=== PATIENT | male | born 1980 | race Caucasian/White ===

== ENCOUNTER 2018-06-19 18:15 | Inpatient (IN) | payer MEDICAID, OTHER ==
[2018-06-19 21:36] LABS: ADD MAN DIFF? NO
[2018-06-19] MEDS: ONDANSETRON 4 MG INJ IV (21:37)
[2018-06-19] MEDS: HYDROmorphONE 1 MG/ML SYG IV (21:38)
[2018-06-19] MEDS: SOD CHLORIDE 0.9% 1,000 ML IV (21:38)
[2018-06-19 21:44] LABS: BASOPHILS % 0.4 % (0.0-2.0); EOSINOPHILS # 0.1 10^3/ul (0.0-0.5); EOSINOPHILS % 2.2 % (0.0-7.0); HEMATOCRIT 47.3 % (42.0-52.0); HEMOGLOBIN 16.4 g/dl (14.0-18.0); LYMPHOCYTES # 0.9 10^3/ul (0.8-2.9); LYMPHOCYTES % 16.5 % (15.0-51.0); MEAN CORPUSCULAR HGB CONC 34.7 g/dl (32.0-37.0); MEAN CORPUSCULAR VOLUME 83.7 fl (82.0-101.0); MEAN PLATELET VOLUME 11.7 fl (7.4-10.4); MONOCYTE # 0.5 10^3/ul (0.3-0.9); NEUTROPHILS % 71.5 % (39.0-77.0); PLATELET COUNT 236 10^3/UL (140-415); RED BLOOD COUNT 5.65 10^6/ul (4.70-6.10); RED CELL DISTRIBUTION WIDTH 12.5 % (11.5-14.5)
[2018-06-19 21:44] LABS: WHITE BLOOD COUNT 5.6 10^3/ul (4.8-10.8)
[2018-06-19 22:10] LABS: ALANINE AMINOTRANSFERASE 97 IU/L (13-69); ALBUMIN 5.1 g/dl (3.3-4.9); ALBUMIN/GLOBULIN RATIO 1.27; ALKALINE PHOSPHATASE 127 IU/L (42-121); ANION GAP 16 (5-13); ASPARTATE AMINO TRANSFERASE 127 IU/L (15-46); BILIRUBIN,INDIRECT 0.5 mg/dl (0-1.1); BILIRUBIN,TOTAL 0.5 mg/dl (0.2-1.3); BLOOD UREA NITROGEN 16 mg/dl (7-20); CALCIUM 9.9 mg/dl (8.4-10.2); CARBON DIOXIDE 20 mmol/L (21-31); CHLORIDE 101 mmol/L (97-110); CREATININE 1.09 mg/dl (0.61-1.24); Estimated GFR > 60 mL/min (>60); GLUCOSE 87 mg/dl (70-220); LIPASE 114 U/L (23-300); SODIUM 137 mmol/L (135-144); TOTAL PROTEIN 9.1 g/dl (6.1-8.1)
[2018-06-19 22:15] LABS: POTASSIUM 2.7 mmol/L (3.5-5.1)
[2018-06-19] MEDS: NS + KCL 20 MEQ 1,000 ML IV (22:44)
[2018-06-19] MEDS: SOD CHLORIDE 0.9% 100 ML (22:45)
[2018-06-19] MEDS: IODIXANOL LOCM 100 ML BTL (22:45)
[2018-06-19] MEDS ORDERED: SOD CHLORIDE 0.9% 1,000 ML IV (23:08)
[2018-06-19] MEDS ORDERED: ONDANSETRON 4 MG INJ IV (23:30)
[2018-06-19] MEDS ORDERED: ACETAMINOPHEN 325 MG TAB PO (23:30)
[2018-06-20] MEDS ORDERED: LOPERAMIDE 2 MG CAP PO
[2018-06-20 00:31] LABS: ADD UMIC NO; UR ASCORBIC ACID NEGATIVE (NEGATIVE); UR BILIRUBIN (Dip) NEGATIVE (NEGATIVE); UR BLOOD (Dip) NEGATIVE (NEGATIVE); UR CLARITY CLEAR (CLEAR); UR COLOR YELLOW (YELLOW); UR GLUCOSE (Dip) NEGATIVE (NEGATIVE); UR KETONES (Dip) 1+ mg/dL (NEGATIVE); UR LEUKOCYTE ESTERASE (Dip) NEGATIVE Leu/ul (NEGATIVE); UR NITRITE (Dip) NEGATIVE (NEGATIVE); UR SPECIFIC GRAVITY (Dip) > 1.060 (1.003-1.030); UR TOTAL PROTEIN (Dip) NEGATIVE (NEGATIVE); UR UROBILINOGEN (Dip) NEGATIVE (NEGATIVE)
[2018-06-20 01:03] LABS: HIV 1&2 ANTIBODY REACTIVE (NEGATIVE)
[2018-06-20 01:47] LABS: ALANINE AMINOTRANSFERASE 81 IU/L (13-69); ALBUMIN 4.2 g/dl (3.3-4.9); ALBUMIN/GLOBULIN RATIO 1.55; ALKALINE PHOSPHATASE 94 IU/L (42-121); ANION GAP 15 (5-13); ASPARTATE AMINO TRANSFERASE 105 IU/L (15-46); BILIRUBIN,INDIRECT 0.3 mg/dl (0-1.1); BILIRUBIN,TOTAL 0.3 mg/dl (0.2-1.3); BLOOD UREA NITROGEN 14 mg/dl (7-20); CALCIUM 8.8 mg/dl (8.4-10.2); CARBON DIOXIDE 20 mmol/L (21-31); CHLORIDE 102 mmol/L (97-110); CREATININE 0.86 mg/dl (0.61-1.24); Estimated GFR > 60 mL/min (>60); GLUCOSE 83 mg/dl (70-220); POTASSIUM 3.1 mmol/L (3.5-5.1); SODIUM 137 mmol/L (135-144); TOTAL PROTEIN 6.9 g/dl (6.1-8.1)
[2018-06-20] MEDS ORDERED: morphine 2 MG INJ IV (02:00)
[2018-06-20] MEDS: morphine 2 MG INJ IV ×2 (02:14→19:55)
[2018-06-20] MEDS: POTASSIUM CHLORIDE 30 MEQ in SOD CHLORIDE 0.9% 1,000 ML IV ×3 (02:16→21:08)
[2018-06-20] MEDS ORDERED: NACL 0.9% 3 ML SYG IV (02:30)
[2018-06-20] MEDS ORDERED: ACETAMINOPHEN 325 MG TAB PO (02:30)
[2018-06-20] MEDS: metroNIDAZOLE 500 MG/NS (PMX) 100 ML IVPB ×4 (03:30→20:02)
[2018-06-20 05:26] LABS: ADD MAN DIFF? NO
[2018-06-20 05:28] LABS: WHITE BLOOD COUNT 3.5 10^3/ul (4.8-10.8)
[2018-06-20 05:28] LABS: BASOPHILS % 0.3 % (0.0-2.0); EOSINOPHILS # 0.1 10^3/ul (0.0-0.5); EOSINOPHILS % 3.1 % (0.0-7.0); HEMATOCRIT 39.2 % (42.0-52.0); HEMOGLOBIN 13.3 g/dl (14.0-18.0); LYMPHOCYTES # 0.8 10^3/ul (0.8-2.9); MEAN CORPUSCULAR HEMOGLOBIN 28.8 pg (29.0-33.0); MEAN CORPUSCULAR HGB CONC 33.9 g/dl (32.0-37.0); MEAN CORPUSCULAR VOLUME 84.8 fl (82.0-101.0); MEAN PLATELET VOLUME 12.2 fl (7.4-10.4); MONOCYTE # 0.4 10^3/ul (0.3-0.9); MONOCYTES % 10.6 % (0.0-11.0); NEUTROPHIL # 2.2 10^3/ul (1.6-7.5); NEUTROPHILS % 63.7 % (39.0-77.0); PLATELET COUNT 173 10^3/UL (140-415); RED BLOOD COUNT 4.62 10^6/ul (4.70-6.10); RED CELL DISTRIBUTION WIDTH 12.6 % (11.5-14.5)
[2018-06-20 06:12] LABS: ALANINE AMINOTRANSFERASE 77 IU/L (13-69); ALBUMIN/GLOBULIN RATIO 1.66; ALKALINE PHOSPHATASE 84 IU/L (42-121); ANION GAP 15 (5-13); ASPARTATE AMINO TRANSFERASE 102 IU/L (15-46); BILIRUBIN,INDIRECT 0.2 mg/dl (0-1.1); BILIRUBIN,TOTAL 0.2 mg/dl (0.2-1.3); BLOOD UREA NITROGEN 12 mg/dl (7-20); CALCIUM 8.6 mg/dl (8.4-10.2); CARBON DIOXIDE 18 mmol/L (21-31); CHLORIDE 105 mmol/L (97-110); CHOL/HDL RATIO 3.1 RATIO; CHOLESTEROL 66 mg/dl (100-200); Estimated GFR > 60 mL/min (>60); GLUCOSE 71 mg/dl (70-220); HDL CHOLESTEROL 21 mg/dl (27-67); LDL CHOLESTEROL,CALCULATED 31 mg/dl; SODIUM 138 mmol/L (135-144); TOTAL PROTEIN 6.4 g/dl (6.1-8.1); TRIGLYCERIDES 71 mg/dl (0-149)
[2018-06-20 06:15] LABS: POTASSIUM 2.9 mmol/L (3.5-5.1)
[2018-06-20 07:16] LABS: HEMOGLOBIN A1C 5.1 % (0-5.9)
[2018-06-20 08:21] LABS: MAGNESIUM 1.8 mg/dl (1.7-2.5)
[2018-06-20] MEDS: POTASSIUM CHLORIDE 100 ML IVPB ×2 (09:50→11:30)
[2018-06-20] MEDS: MAGNESIUM SULFATE 2 GM/50 ML 50 ML IVPB (22:00)
[2018-06-21] MEDS: metroNIDAZOLE 500 MG/NS (PMX) 100 ML IVPB ×4 (05:37→21:16)
[2018-06-21] MEDS: POTASSIUM CHLORIDE 30 MEQ in SOD CHLORIDE 0.9% 1,000 ML IV ×2 (09:09→18:36)
[2018-06-21 09:22] LABS: ADD MAN DIFF? NO
[2018-06-21 09:24] LABS: BASOPHILS % 0.3 % (0.0-2.0); EOSINOPHILS # 0.2 10^3/ul (0.0-0.5); EOSINOPHILS % 5.8 % (0.0-7.0); HEMATOCRIT 43.8 % (42.0-52.0); HEMOGLOBIN 14.7 g/dl (14.0-18.0); LYMPHOCYTES # 0.7 10^3/ul (0.8-2.9); LYMPHOCYTES % 18.2 % (15.0-51.0); MEAN CORPUSCULAR HEMOGLOBIN 28.9 pg (29.0-33.0); MEAN CORPUSCULAR HGB CONC 33.6 g/dl (32.0-37.0); MEAN CORPUSCULAR VOLUME 86.2 fl (82.0-101.0); MONOCYTE # 0.4 10^3/ul (0.3-0.9); MONOCYTES % 10.6 % (0.0-11.0); NEUTROPHIL # 2.6 10^3/ul (1.6-7.5); NEUTROPHILS % 64.8 % (39.0-77.0); PLATELET COUNT 195 10^3/UL (140-415); RED BLOOD COUNT 5.08 10^6/ul (4.70-6.10); RED CELL DISTRIBUTION WIDTH 13.3 % (11.5-14.5)
[2018-06-21 09:41] LABS: ANION GAP 11 (5-13); BLOOD UREA NITROGEN 8 mg/dl (7-20); CALCIUM 9.2 mg/dl (8.4-10.2); CARBON DIOXIDE 19 mmol/L (21-31); CHLORIDE 111 mmol/L (97-110); CREATININE 0.86 mg/dl (0.61-1.24); Estimated GFR > 60 mL/min (>60); GLUCOSE 79 mg/dl (70-220); MAGNESIUM 1.9 mg/dl (1.7-2.5); PHOSPHORUS 2.9 mg/dl (2.5-4.9); SODIUM 141 mmol/L (135-144)
[2018-06-21] MEDS: morphine 2 MG INJ IV ×2 (16:18→20:32)
[2018-06-21] MEDS: CIPROFLOXACIN 400MG/D5W 200 ML IVPB (19:13)
[2018-06-22] MEDS: POTASSIUM CHLORIDE 30 MEQ in SOD CHLORIDE 0.9% 1,000 ML IV ×2 (02:33→15:17)
[2018-06-22] MEDS: metroNIDAZOLE 500 MG/NS (PMX) 100 ML IVPB ×4 (02:34→20:54)
[2018-06-22] MEDS: morphine 2 MG INJ IV ×3 (05:18→20:51)
[2018-06-22 05:32] LABS: HAAIG REFLEX REFLEX FILED
[2018-06-22 06:53] LABS: ANION GAP 12 (5-13); BLOOD UREA NITROGEN 7 mg/dl (7-20); CALCIUM 9.2 mg/dl (8.4-10.2); CARBON DIOXIDE 20 mmol/L (21-31); CHLORIDE 109 mmol/L (97-110); CREATININE 0.85 mg/dl (0.61-1.24); Estimated GFR > 60 mL/min (>60); GLUCOSE 99 mg/dl (70-220); MAGNESIUM 1.8 mg/dl (1.7-2.5); PHOSPHORUS 3.2 mg/dl (2.5-4.9); POTASSIUM 3.8 mmol/L (3.5-5.1); SODIUM 141 mmol/L (135-144)
[2018-06-22 07:29] LABS: HEPATITIS B SURFACE ANTIGEN NEGATIVE (NEGATIVE)
[2018-06-22 07:47] LABS: HEPATITIS B CORE ANTIBODY NEGATIVE (NEGATIVE); HEPATITIS C VIRAL ANTIBODY NEGATIVE (NEGATIVE)
[2018-06-22] MEDS: CIPROFLOXACIN 400MG/D5W 200 ML IVPB (08:58)
[2018-06-22] MEDS: LOPERAMIDE 2 MG CAP PO ×2 (16:28→20:54)
[2018-06-23 02:05] LABS: CMV DNA QL SOURCE WHOLE BLOOD
[2018-06-23] MEDS: POTASSIUM CHLORIDE 30 MEQ in SOD CHLORIDE 0.9% 1,000 ML IV (02:58)
[2018-06-23] MEDS: metroNIDAZOLE 500 MG/NS (PMX) 100 ML IVPB ×2 (02:58→10:18)
[2018-06-23] MEDS: ONDANSETRON 4 MG INJ IV (03:33)
[2018-06-23] MEDS: morphine 2 MG INJ IV (03:40)
[2018-06-23] MEDS: LOPERAMIDE 2 MG CAP PO ×2 (08:01→12:40)
[2018-06-23 11:31] LABS: LYMPHOCYTE - % CD4 (HELPER) 2 % (30-61); LYMPHOCYTE - %CD8 (SUPPRESSOR) 75 % (12-42); LYMPHOCYTE - ABSOLUTE 843 cells/uL (850-3900); LYMPHOCYTE - ABSOLUTE CD4 <20 cells/uL (490-1740); LYMPHOCYTE - ABSOLUTE CD8 633 cells/uL (180-1170); LYMPHOCYTE - CD4/CD8 RATIO 0.03 (0.86-5.00)
[2018-06-23 13:02] LABS: HSV 2 IGG ANTIBODY 1.98 index; LYMPHOCYTE - % CD4 (HELPER) 1 % (30-61); LYMPHOCYTE - %CD8 (SUPPRESSOR) 75 % (12-42); LYMPHOCYTE - ABSOLUTE 706 cells/uL (850-3900); LYMPHOCYTE - ABSOLUTE CD4 <20 cells/uL (490-1740); LYMPHOCYTE - ABSOLUTE CD8 532 cells/uL (180-1170); LYMPHOCYTE - CD4/CD8 RATIO 0.01 (0.86-5.00)
== END 2018-06-23 12:50 | disposition home or self-care (01) | DRG 977 ==
LOC: PP2 23:09 → E/R 18:15
DX: A09 Infectious gastroenteritis and colitis, unspecified (principal); B20 Human immunodeficiency virus [HIV] disease; E87.6 Hypokalemia; E86.0 Dehydration; R74.0 Nonspecific elevation of levels of transaminase and lactic acid dehydrogenase [LDH]; Z91.14 Patient's other noncompliance with medication regimen; Z91.19 Patient's noncompliance with other medical treatment and regimen
CPT/HCPCS: 36415; 71045; 74177; 76705; 80048; 80053; 80061; 81003; 83036; 83690; 83735; 84100; 84443; 85025; 86360; 86674; 86692; 86701; 86703; 86704; 86709; 86803; 87045; 87075; 87177; 87205; 87340; 87496; 87529; 87536; 96374; 96375; 99285-25

== ENCOUNTER 2018-07-02 03:17 | Inpatient (IN) | payer MEDICAID ==
[2018-07-02 06:53] LABS: ADD MAN DIFF? NO
[2018-07-02 07:05] LABS: ALANINE AMINOTRANSFERASE 100 IU/L (13-69); ALBUMIN 5.2 g/dl (3.3-4.9); ALKALINE PHOSPHATASE 117 IU/L (42-121); ANION GAP 26 (5-13); ASPARTATE AMINO TRANSFERASE 98 IU/L (15-46); BILIRUBIN,INDIRECT 0.6 mg/dl (0-1.1); BILIRUBIN,TOTAL 0.6 mg/dl (0.2-1.3); BLOOD UREA NITROGEN 19 mg/dl (7-20); CALCIUM 9.9 mg/dl (8.4-10.2); CARBON DIOXIDE 17 mmol/L (21-31); CHLORIDE 99 mmol/L (97-110); CREATININE 2.05 mg/dl (0.61-1.24); Estimated GFR 36 mL/min (>60); GLUCOSE 163 mg/dl (70-220); LIPASE 58 U/L (23-300); SODIUM 142 mmol/L (135-144); TOTAL PROTEIN 9.2 g/dl (6.1-8.1)
[2018-07-02 07:08] LABS: WHITE BLOOD COUNT 8.4 10^3/ul (4.8-10.8)
[2018-07-02 07:08] LABS: BASOPHILS % 0.2 % (0.0-2.0); EOSINOPHILS % 0.1 % (0.0-7.0); HEMATOCRIT 47.1 % (42.0-52.0); HEMOGLOBIN 17.1 g/dl (14.0-18.0); LYMPHOCYTES # 0.6 10^3/ul (0.8-2.9); LYMPHOCYTES % 7.3 % (15.0-51.0); MEAN CORPUSCULAR HEMOGLOBIN 29.1 pg (29.0-33.0); MEAN CORPUSCULAR HGB CONC 36.3 g/dl (32.0-37.0); MEAN CORPUSCULAR VOLUME 80.1 fl (82.0-101.0); MEAN PLATELET VOLUME 12.1 fl (7.4-10.4); MONOCYTE # 0.7 10^3/ul (0.3-0.9); MONOCYTES % 7.9 % (0.0-11.0); NEUTROPHIL # 7.1 10^3/ul (1.6-7.5); PLATELET COUNT 327 10^3/UL (140-415); RED BLOOD COUNT 5.88 10^6/ul (4.70-6.10); RED CELL DISTRIBUTION WIDTH 13.1 % (11.5-14.5)
[2018-07-02] MEDS: ONDANSETRON 4 MG INJ IV ×2 (07:10→10:02)
[2018-07-02] MEDS: HYDROmorphONE 1 MG/ML SYG IV ×2 (07:11→10:03)
[2018-07-02] MEDS: SOD CHLORIDE 0.9% 1,000 ML IV ×2 (07:11→10:10)
[2018-07-02] MEDS: POTASSIUM CHLORIDE 40 MEQ in SOD CHLORIDE 0.9% 1,000 ML IV ×4 (08:30→21:50)
[2018-07-02] MEDS ORDERED: ONDANSETRON 4 MG INJ IV ×2 (10:30→13:30)
[2018-07-02] MEDS ORDERED: ACETAMINOPHEN 325 MG TAB PO (10:30)
[2018-07-02] MEDS: NS + KCL 20 MEQ 1,000 ML IV (13:07)
[2018-07-02] MEDS ORDERED: NACL 0.9% 3 ML SYG IV (13:30)
[2018-07-02] MEDS: LOPERAMIDE 2 MG CAP PO ×3 (13:30→20:51)
[2018-07-02] MEDS: POTASSIUM CHLORIDE 20 MEQ POWDER FOR ORAL SOLN PO ×2 (14:16→17:56)
[2018-07-02] MEDS: HYDROCODONE/APAP (5/325) TAB PO (14:23)
[2018-07-02 14:49] LABS: ANION GAP 16 (5-13); BLOOD UREA NITROGEN 19 mg/dl (7-20); CALCIUM 8.6 mg/dl (8.4-10.2); CARBON DIOXIDE 19 mmol/L (21-31); CHLORIDE 103 mmol/L (97-110); CREATININE 1.38 mg/dl (0.61-1.24); Estimated GFR 57 mL/min (>60); GLUCOSE 101 mg/dl (70-220); SODIUM 138 mmol/L (135-144)
[2018-07-02 14:53] LABS: POTASSIUM 2.6 mmol/L (3.5-5.1)
[2018-07-02] MEDS: BISACODYL (EC) 5 MG TAB PO (16:05)
[2018-07-02] MEDS: POLYETHYLENE GLYCOL 3350 119 GM POWDER PO (17:56)
[2018-07-02] MEDS: MAGNESIUM CITRATE 300 ML BTL PO (18:09)
[2018-07-02] MEDS: morphine 2 MG INJ IV (18:10)
[2018-07-02 19:58] LABS: ANION GAP 14 (5-13); BLOOD UREA NITROGEN 19 mg/dl (7-20); CARBON DIOXIDE 18 mmol/L (21-31); CHLORIDE 103 mmol/L (97-110); CREATININE 1.31 mg/dl (0.61-1.24); Estimated GFR > 60 mL/min (>60); GLUCOSE 94 mg/dl (70-220); SODIUM 135 mmol/L (135-144)
[2018-07-02 20:16] LABS: POTASSIUM 2.7 mmol/L (3.5-5.1)
[2018-07-03] MEDS: POTASSIUM CHLORIDE 40 MEQ in SOD CHLORIDE 0.9% 1,000 ML IV ×3 (01:09→17:50)
[2018-07-03 01:13] LABS: MAGNESIUM 1.6 mg/dl (1.7-2.5)
[2018-07-03 01:15] LABS: ANION GAP 12 (5-13); BLOOD UREA NITROGEN 17 mg/dl (7-20); CALCIUM 8.7 mg/dl (8.4-10.2); CARBON DIOXIDE 19 mmol/L (21-31); CHLORIDE 106 mmol/L (97-110); CREATININE 1.21 mg/dl (0.61-1.24); Estimated GFR > 60 mL/min (>60); GLUCOSE 100 mg/dl (70-220); SODIUM 137 mmol/L (135-144)
[2018-07-03 01:18] LABS: POTASSIUM 2.9 mmol/L (3.5-5.1)
[2018-07-03] MEDS: HYDROCODONE/APAP (5/325) TAB PO ×3 (01:42→20:56)
[2018-07-03] MEDS: MAGNESIUM SULFATE 3 GM in DEXTROSE 5% 100 ML IVPB (01:52)
[2018-07-03] MEDS: POLYETHYLENE GLYCOL 3350 119 GM POWDER PO (05:59)
[2018-07-03] MEDS: PANTOPRAZOLE (EC) 40 MG TAB PO (06:00)
[2018-07-03 06:31] LABS: ADD MAN DIFF? NO
[2018-07-03 06:33] LABS: BASOPHILS % 0.3 % (0.0-2.0); EOSINOPHILS # 0.2 10^3/ul (0.0-0.5); EOSINOPHILS % 3.6 % (0.0-7.0); HEMATOCRIT 38.4 % (42.0-52.0); HEMOGLOBIN 13.9 g/dl (14.0-18.0); LYMPHOCYTES % 16.6 % (15.0-51.0); MEAN CORPUSCULAR HEMOGLOBIN 29.1 pg (29.0-33.0); MEAN CORPUSCULAR HGB CONC 36.2 g/dl (32.0-37.0); MEAN CORPUSCULAR VOLUME 80.5 fl (82.0-101.0); MEAN PLATELET VOLUME 11.9 fl (7.4-10.4); MONOCYTE # 0.7 10^3/ul (0.3-0.9); MONOCYTES % 11.5 % (0.0-11.0); NEUTROPHIL # 3.9 10^3/ul (1.6-7.5); NEUTROPHILS % 67.5 % (39.0-77.0); PLATELET COUNT 272 10^3/UL (140-415); RED BLOOD COUNT 4.77 10^6/ul (4.70-6.10); RED CELL DISTRIBUTION WIDTH 13.5 % (11.5-14.5)
[2018-07-03 06:33] LABS: WHITE BLOOD COUNT 5.8 10^3/ul (4.8-10.8)
[2018-07-03] MEDS ORDERED: PROPOFOL 200 MG INJ (07:00)
[2018-07-03] MEDS ORDERED: LIDOCAINE 2% (SDV) 5 ML INJ (07:00)
[2018-07-03 07:13] LABS: HEMOGLOBIN A1C 5.1 % (0-5.9)
[2018-07-03 07:13] LABS: ALANINE AMINOTRANSFERASE 79 IU/L (13-69); ALBUMIN 4.1 g/dl (3.3-4.9); ALKALINE PHOSPHATASE 88 IU/L (42-121); ASPARTATE AMINO TRANSFERASE 81 IU/L (15-46); BILIRUBIN,INDIRECT 3.6 mg/dl (0-1.1); BILIRUBIN,TOTAL 3.6 mg/dl (0.2-1.3); TOTAL PROTEIN 6.5 g/dl (6.1-8.1)
[2018-07-03 07:25] LABS: ALANINE AMINOTRANSFERASE 74 IU/L (13-69); ALBUMIN 4.1 g/dl (3.3-4.9); ALBUMIN/GLOBULIN RATIO 1.57; ALKALINE PHOSPHATASE 90 IU/L (42-121); ANION GAP 15 (5-13); ASPARTATE AMINO TRANSFERASE 80 IU/L (15-46); BILIRUBIN,INDIRECT 3.6 mg/dl (0-1.1); BILIRUBIN,TOTAL 3.6 mg/dl (0.2-1.3); BLOOD UREA NITROGEN 15 mg/dl (7-20); CARBON DIOXIDE 16 mmol/L (21-31); CHLORIDE 105 mmol/L (97-110); CREATININE 1.15 mg/dl (0.61-1.24); Estimated GFR > 60 mL/min (>60); GLUCOSE 105 mg/dl (70-220); MAGNESIUM 3.1 mg/dl (1.7-2.5); PHOSPHORUS 1.4 mg/dl (2.5-4.9); SODIUM 136 mmol/L (135-144); TOTAL PROTEIN 6.7 g/dl (6.1-8.1)
[2018-07-03 07:42] LABS: HEPATITIS B SURFACE ANTIGEN NEGATIVE (NEGATIVE)
[2018-07-03 07:46] LABS: POTASSIUM 2.2 mmol/L (3.5-5.1)
[2018-07-03 08:00] LABS: HEPATITIS B CORE ANTIBODY NEGATIVE (NEGATIVE); HEPATITIS C VIRAL ANTIBODY NEGATIVE (NEGATIVE)
[2018-07-03 08:01] LABS: HEPATITIS B SURFACE ANTIBODY NEGATIVE (NEGATIVE)
[2018-07-03] MEDS: TRIMETHOPRIM/SULFAMETHOX (DS) TAB PO (09:00)
[2018-07-03] MEDS: FLUCONAZOLE 200 MG TAB PO (09:00)
[2018-07-03] MEDS: LOPERAMIDE 2 MG CAP PO ×4 (09:00→21:00)
[2018-07-03] MEDS: ELVITEGR/COBICIST/EMTRIC/TENOF 1 EACH TABLET PO (09:00)
[2018-07-03] MEDS: ATAZANAVIR 150 MG CAP PO (09:00)
[2018-07-03] MEDS: BISACODYL (EC) 5 MG TAB PO (09:07)
[2018-07-03 09:28] LABS: ANION GAP 16 (5-13); BLOOD UREA NITROGEN 14 mg/dl (7-20); CALCIUM 9.2 mg/dl (8.4-10.2); CARBON DIOXIDE 17 mmol/L (21-31); CHLORIDE 105 mmol/L (97-110); CREATININE 1.11 mg/dl (0.61-1.24); Estimated GFR > 60 mL/min (>60); GLUCOSE 95 mg/dl (70-220); SODIUM 138 mmol/L (135-144)
[2018-07-03 09:35] LABS: POTASSIUM 2.5 mmol/L (3.5-5.1)
[2018-07-03] MEDS: INFLUENZA VIRUS VACCINE 0.5 ML (DISPENSING) IM* (10:00)
[2018-07-03] MEDS: POTASSIUM PHOSPHATE 30 MM in SOD CHLORIDE 0.9% 250 ML IVPB (12:15)
[2018-07-03] MEDS: POTASSIUM CHLORIDE 20 MEQ POWDER FOR ORAL SOLN PO ×2 (12:16→20:57)
[2018-07-03 13:58] LABS: ANION GAP 11 (5-13); BLOOD UREA NITROGEN 12 mg/dl (7-20); CALCIUM 8.7 mg/dl (8.4-10.2); CARBON DIOXIDE 18 mmol/L (21-31); CHLORIDE 109 mmol/L (97-110); CREATININE 1.03 mg/dl (0.61-1.24); Estimated GFR > 60 mL/min (>60); GLUCOSE 74 mg/dl (70-220); POTASSIUM 3.3 mmol/L (3.5-5.1); SODIUM 138 mmol/L (135-144)
[2018-07-03] MEDS ORDERED: EPHEDrine SULFATE 50 MG/5 ML SYG (18:16)
[2018-07-03] MEDS ORDERED: EPHEDrine SULFATE 50 MG/5 ML SYG IV (18:30)
[2018-07-04] MEDS: POTASSIUM CHLORIDE 40 MEQ in SOD CHLORIDE 0.9% 1,000 ML IV ×4 (00:12→21:15)
[2018-07-04] MEDS: PANTOPRAZOLE (EC) 40 MG TAB PO (05:36)
[2018-07-04] MEDS: FLUCONAZOLE 200 MG TAB PO (07:43)
[2018-07-04] MEDS: LOPERAMIDE 2 MG CAP PO ×4 (07:43→21:00)
[2018-07-04] MEDS: ELVITEGR/COBICIST/EMTRIC/TENOF 1 EACH TABLET PO (09:00)
[2018-07-04] MEDS: ATAZANAVIR 150 MG CAP PO (09:00)
[2018-07-04] MEDS: TRIMETHOPRIM/SULFAMETHOX (DS) TAB PO (09:16)
[2018-07-04] MEDS: HYDROCODONE/APAP (5/325) TAB PO (11:18)
[2018-07-04 11:36] LABS: MITOCHONDRIAL TB NEGATIVE (NEGATIVE); SMOOTH MUSCLE AB SCREEN NEGATIVE (NEGATIVE)
[2018-07-04 11:48] LABS: ANION GAP 10 (5-13); BLOOD UREA NITROGEN 7 mg/dl (7-20); CALCIUM 8.6 mg/dl (8.4-10.2); CARBON DIOXIDE 17 mmol/L (21-31); CHLORIDE 115 mmol/L (97-110); CREATININE 0.79 mg/dl (0.61-1.24); Estimated GFR > 60 mL/min (>60); GLUCOSE 74 mg/dl (70-220); POTASSIUM 3.4 mmol/L (3.5-5.1); SODIUM 142 mmol/L (135-144)
[2018-07-04] MEDS: POTASSIUM CHLORIDE 20 MEQ POWDER FOR ORAL SOLN PO (12:35)
[2018-07-04 15:33] LABS: ANA SCREEN NEGATIVE (NEGATIVE)
[2018-07-04] MEDS: morphine 2 MG INJ IV (21:15)
[2018-07-05] MEDS: POTASSIUM CHLORIDE 40 MEQ in SOD CHLORIDE 0.9% 1,000 ML IV ×2 (03:23→09:50)
[2018-07-05] MEDS: PANTOPRAZOLE (EC) 40 MG TAB PO (05:39)
[2018-07-05 06:07] LABS: ANION GAP 7 (5-13); BLOOD UREA NITROGEN 4 mg/dl (7-20); CALCIUM 8.2 mg/dl (8.4-10.2); CARBON DIOXIDE 17 mmol/L (21-31); CHLORIDE 117 mmol/L (97-110); CREATININE 0.67 mg/dl (0.61-1.24); Estimated GFR > 60 mL/min (>60); GLUCOSE 68 mg/dl (70-220); POTASSIUM 4.4 mmol/L (3.5-5.1); SODIUM 141 mmol/L (135-144)
[2018-07-05] MEDS: FLUCONAZOLE 200 MG TAB PO (08:20)
[2018-07-05] MEDS: LOPERAMIDE 2 MG CAP PO ×4 (09:00→20:49)
[2018-07-05] MEDS: TRIMETHOPRIM/SULFAMETHOX (DS) TAB PO (09:15)
[2018-07-05] MEDS: ELVITEGR/COBICIST/EMTRIC/TENOF 1 EACH TABLET PO (09:15)
[2018-07-05] MEDS: ATAZANAVIR 150 MG CAP PO (09:15)
[2018-07-05] MEDS: LACTOBACILLUS RHAMNOSUS CAP PO ×2 (12:43→20:48)
[2018-07-06] MEDS: morphine 2 MG INJ IV (05:46)
[2018-07-06] MEDS: PANTOPRAZOLE (EC) 40 MG TAB PO (05:47)
[2018-07-06 06:21] LABS: ANION GAP 9 (5-13); BLOOD UREA NITROGEN 4 mg/dl (7-20); CALCIUM 9.2 mg/dl (8.4-10.2); CARBON DIOXIDE 21 mmol/L (21-31); CHLORIDE 110 mmol/L (97-110); Estimated GFR > 60 mL/min (>60); GLUCOSE 89 mg/dl (70-220); POTASSIUM 4.5 mmol/L (3.5-5.1); SODIUM 140 mmol/L (135-144)
[2018-07-06] MEDS: ELVITEGR/COBICIST/EMTRIC/TENOF 1 EACH TABLET PO (09:00)
[2018-07-06] MEDS: LOPERAMIDE 2 MG CAP PO ×2 (09:00→09:13)
[2018-07-06] MEDS: ATAZANAVIR 150 MG CAP PO (09:00)
[2018-07-06] MEDS: TRIMETHOPRIM/SULFAMETHOX (DS) TAB PO ×2 (09:00→09:12)
[2018-07-06] MEDS: LACTOBACILLUS RHAMNOSUS CAP PO (09:12)
[2018-07-06] MEDS: FLUCONAZOLE 200 MG TAB PO (09:13)
== END 2018-07-06 11:45 | disposition home or self-care (01) | DRG 975 ==
LOC: 6WM 12:06 → E/R 03:17 → 6WM 10:11
PROC: 0DB98ZX Excision of Duodenum, Via Natural or Artificial Opening Endoscopic, Diagnostic (ICD-10-PCS; principal; 2018-07-03 14:45)
PROC: 0DB68ZX Excision of Stomach, Via Natural or Artificial Opening Endoscopic, Diagnostic (ICD-10-PCS; 2018-07-03 14:45)
PROC: 0DBN8ZX Excision of Sigmoid Colon, Via Natural or Artificial Opening Endoscopic, Diagnostic (ICD-10-PCS; 2018-07-03 14:45)
DX: B20 Human immunodeficiency virus [HIV] disease (principal); B37.0 Candidal stomatitis; N17.9 Acute kidney failure, unspecified; B37.81 Candidal esophagitis; A07.2 Cryptosporidiosis; E87.6 Hypokalemia; K29.80 Duodenitis without bleeding; K52.89 Other specified noninfective gastroenteritis and colitis; K29.70 Gastritis, unspecified, without bleeding
CPT/HCPCS: 36415; 71045; 74176; 80048; 80053; 80076; 83036; 83690; 83735; 84100; 85025; 86038; 86255; 86704; 86706; 86708; 86709; 86803; 87340; 88305; 88312; 88313; 90686; 96374; 96375; 96376; 99285-25